=== PATIENT | female | born 1985 | race Two or more races ===

== ENCOUNTER 2021-05-23 16:36 | Emergency (ER) | payer OTHER ==
[2021-05-23 16:56] VITALS: BP 130/93; PULSE 105; TEMP 98.8; BMI 33.6
== END 2021-05-23 18:26 | disposition home or self-care (01) ==
LOC: JERFT 16:36
DX: L23.9 Allergic contact dermatitis, unspecified cause (principal)
CPT/HCPCS: 99281-25